=== PATIENT | female | born 1985 ===

== ENCOUNTER 2024-08-27 11:42 | Outpatient (CLI) | payer BC, SELFPAY ==
--- NOTE | ~2024-08-27 | US_ITS ---
EXAMINATION: US OB <= 14 weeks fetus DATE: 08/27/2024 12:40 INDICATION: . Uncertain dates. TECHNIQUE: Real-time transabdominal pelvic ultrasound was performed. COMPARISON: None. FINDINGS: The uterus measures 14.0 x 8.0 x 9.0 cm. There is an intrauterine gestational sac. A yolk sac is iden tified. The crown rump length measures 2.2 cm, which correlates with an estimated gestational age of 9 weeks and 0 day(s) (+/-) 6 day(s). heart motion is identified measuring 174 beats per minute (bpm) by M-mode Doppler. The right ovary measures 3.4 x 1.9 x 2.2 cm. The left ovary measures 2.2 x 1.7 x 1.9 cm. There is no free fluid in the pelvis. IMPRESSION: 1. Single living intrauterine gestation with estimated date of delivery of 04/01/2025. Reviewed, dictated and finalized at location A. MANAGER IMPRESSION: 1. Single living intrauterine gestation with estimated date of delivery of 03/15.
== END 2024-08-27 11:43 | disposition home or self-care (01) ==
LOC: MICIMG 11:44
PROVIDERS: PCP Advanced Practice Midwife; Visit Provider Advanced Practice Midwife
DX: Z36.87 Encounter for antenatal screening for uncertain dates (principal); Z3A.00 Weeks of gestation of pregnancy not specified
CPT/HCPCS: 76801